=== PATIENT | female | born 1985 | race Caucasian/White ===

== ENCOUNTER 2018-05-10 16:44 | Emergency (ER) | payer OTHER, SELFPAY ==
[2018-05-10 16:48] VITALS: BP 115/80; PULSE 108; RESP 15; TEMP 36.2; O2SAT 100; BMI 28.5
--- NOTE | 2018-05-10 19:00 | DI.RAD.S_ITS ---
PROCEDURE: XR CHEST 1V INDICATIONS: Weakness TECHNIQUE: One view of the chest was acquired. COMPARISON: None. FINDINGS: Surgical changes and devices: Spinal stimulator device projects over the mid thoracic spine. Lungs and pleura: Lungs are clear. No pleural effusions or pneumothorax. Mediastinum: Mediastinal contours appear normal. Heart size is normal. Bones and chest wall: No suspicious bony lesions. Overlying soft tissues appear unremarkable. IMPRESSION: No acute disease. Dictated by: Mark Roberts M.D. on 05/10/2018 at 21:02 Approved by: Mark Roberts M.D. on 05/10/2018 at 21:03
--- NOTE | 2018-05-10 19:03 | PC.NURSE ---
Pt states she has had tingling in all extremities and in her tongue for years. States leaking urine and wanted MRI of her neck.
[2018-05-10 19:22] LABS: Add Manual Diff / Slide Review NO; Basophils Absolute Auto 0 /uL (0-100); Basophils Percent Auto 0.2 % (0-2); Eosinophils Absolute Auto 100 /uL (0-450); Eosinophils Percent Auto 1.1 % (2-4); Hematocrit 40.6 % (36-46); Hemoglobin 13.8 g/dL (12.0-16.0); Lymphocytes Absolute Auto 2500 /uL (1100-4500); Mean Corpuscular Hemoglobin 29.5 PG (26-34); Mean Corpuscular Volume 86.8 fL (80-100); Monocytes Absolute Auto 500 /uL (0-900); Monocytes Percent Auto 7.4 % (3-14); Neutrophils Absolute Auto 3900 /uL (1500-7000); Neutrophils Percent Auto 55.3 % (50-75); Platelet Count 277 X10^3/uL (150-400); Red Blood Cell Count 4.68 X10^6/uL (4.0-5.2); Red Cell Distribution Width 12.6 % (11.6-14.8)
[2018-05-10 19:34] LABS: Alanine Aminotransferase 20 IU/L (9-52); Albumin 4.5 g/dL (3.5-5.0); Albumin Globulin Ratio 1.4 (1.0-2.8); Alkaline Phosphatase 36 U/L (38-126); Aspartate Aminotransferase 14 IU/L (14-36); BUN Creatinine Ratio 12.5 (6-22); Bilirubin Total 0.2 mg/dL (0.2-1.3); Blood Urea Nitrogen 10 mg/dL (7-17); Calcium 9.3 mg/dL (8.4-10.2); Carbon Dioxide 22 mmol/L (22-32); Chloride 106 mmol/L (98-107); Creatine Kinase 27 U/L (30-135); Estimated Glomerular Filt Rate > 60.0 mL/min (>60); Globulin 3.2 g/dL (1.7-4.1); Glucose 88 mg/dL (70-100); HEMOLYSIS < 15 (0-50); Potassium 3.8 mmol/L (3.4-5.1); Sodium 140 mmol/L (137-145); Total Protein 7.7 g/dL (6.3-8.2)
[2018-05-10 19:45] LABS: Troponin I < 0.012 ng/mL (0.01-0.034)
[2018-05-10 20:06] VITALS: BP 110/56; PULSE 80; RESP 12; O2SAT 100
--- NOTE | 2018-05-10 20:43 | ED.EXTPRO ---
HPI - Extremity Problem <WENDI Laboy - Last Filed: 05/10/18 22:40> General Chief complaint: Extremity Problem,Nontraumatic Stated complaint: NUMBNESS IN HANDS AND FEET, SOB Time Seen by Provider: 05/10/18 18:36 Source: patient Mode of arrival: ambulatory Limitations: no limitations History of Present Illness HPI Narrative: 32-year-old female with history of chronic back pain here for complaint of having vague symptoms of generalized weakness with occasional numbness and tingling to bilateral hands and feet over the past 4 months. She states that she sees chronic pain clinic for her back issues. She has had the symptoms for last several months they are wanting to get a CT of her neck which she will complete tomorrow. She denies any trauma to the neck. She is ambulatory into the emergency room. She denies any stressors or relievers of her symptoms. She denies any loss of bladder or bowel control. No trauma to the neck or to the back area. No chest pain no shortness of breath. She is tolerating p.o. intake well. No nausea or vomiting. MD Complaint: other Related Data Home Medications Medication Instructions Recorded Confirmed cholecalciferol (vitamin D3) 3,000 unit PO DAILY 05/10/18 05/10/18 [Vitamin D3] lisinopril 10 mg PO DAILY 05/10/18 05/10/18 magnesium 400 mg PO DAILY 05/10/18 05/10/18 metoprolol tartrate 10 mg PO DAILY 05/10/18 05/10/18 multivitamin 1 tab PO DAILY 05/10/18 05/10/18 nortriptyline 40 mg PO DAILY 05/10/18 05/10/18 oxycodone-acetaminophen [Percocet] 1 tab PO Q4-6H PRN 05/10/18 05/10/18 sumatriptan 5 mg INTRANASAL Q2-4H PRN 05/10/18 05/10/18 topiramate [Topamax] 100 mg PO BID 05/10/18 05/10/18 zolpidem [Ambien] 10 mg PO BEDTIME PRN 05/10/18 05/10/18 Allergies Allergy/AdvReac Type Severity Reaction Status Date / Time iodine [IODINE] Allergy Mild TOPICAL Verified 05/10/18 16:48 ONLY, RASH, ITCHING Penicillins Allergy Verified 05/10/18 16:48 morphine [MORPHINE] AdvReac Severe ITCHING Verified 05/10/18 16:48 Review of Systems <WENDI Laboy - Last Filed: 05/10/18 22:40> Constitutional Denies chills, Denies fever(s), Denies lethargy and Reports weakness Eyes Denies change in vision, Denies eye discharge, Denies irritation and Denies loss of vision ENT Ears, Nose, Mouth, and Throat: Denies change in voice, Denies neck pain and Denies sore throat Cardiovascular Denies chest pain, Denies irregular heart rhythm, Denies lightheadedness, Denies palpitations, Denies dyspnea, Denies dyspnea on exertion and Denies orthopnea Respiratory Denies cough, Denies dyspnea, Denies dyspnea on exertion and Denies wheezing Gastrointestinal Gastrointestinal: Denies abdominal pain, Denies change in bowel habits, Denies diarrhea, Denies nausea and Denies vomiting Genitourinary Denies hematuria, Denies flank pain, Denies urinary incontinence and Denies urinary urgency Musculoskeletal Denies neck pain Comments: . A numbness and tingling to her extremities on off for last 4 months Integumentary/Breasts Denies pruritus, Denies erythema, Denies rash and Denies wounds Neurologic Denies confusion, Denies loss of vision and Reports weakness Psychiatric Denies anxiety, Denies confusion, Denies depression, Denies homicidal ideation and Denies suicidal ideation Endocrine Denies palpitations Hematologic/Lymphatic Denies easy bruising Allergic/Immunologic Denies wheezing PFSH <WENDI Laboy - Last Filed: 05/10/18 22:40> Social History Smoking Status: Unknown if ever smoked Social History Smoking Status: Unknown if ever smoked Exam <WENDI Laboy - Last Filed: 05/10/18 22:40> Initial Vital Signs Initial Vital Signs: Vital Signs Temperature 97.1 F L 05/10/18 16:48 Pulse Rate 108 H 05/10/18 16:48 Respiratory Rate 15 05/10/18 16:48 Blood Pressure 115/80 05/10/18 16:48 Pulse Oximetry 100 05/10/18 16:48 Const General: cooperative and well developed Nutritional Appearance: well nourished Orientation: alert, awake, oriented x3 and not confused [facility] Mouth: oral mucosae normal and moist mucous membranes Eyes Conjunctivae: conjunctivae normal Sclera: sclerae normal Pupils: PERRL EOM: EOM intact bilaterally Resp Effort & Inspection: normal respiratory effort, able to speak in complete sentences, no respiratory distress and no use of accessory muscles Auscultation: clear to auscultation bilaterally, no rales, no rhonchi and no wheezes Cardio Rate: regular rate Rhythm: regular rhythm Heart Sounds: no click, no gallops, no murmurs and no rubs Pulses: normal peripheral pulses GI Inspection: non-distended Palpation: soft, no hepatosplenomegaly, No guarding, No pulsatile mass and No tender Auscultation: normal bowel sounds Skin General: no rashes or lesions noted, No jaundice and No petechiae Neuro General: alert, oriented x3, gait normal and no focal motor deficits Cranial Nerves: CN's II-XI intact bilaterally Cognition: normal cognition Speech: speech normal Motor: muscle tone normal throughout and strength 5/5 throughout Sensory Exam: no sensory deficits noted Extrem General: full ROM, no clubbing, cyanosis or edema, no pedal edema and no calf tenderness <Uzma Cooper MD - Last Filed: 05/11/18 05:33> Initial Vital Signs Initial Vital Signs: Vital Signs Temperature 97.1 F L 05/10/18 16:48 Pulse Rate 108 H 05/10/18 16:48 Respiratory Rate 15 05/10/18 16:48 Blood Pressure 115/80 05/10/18 16:48 Pulse Oximetry 100 05/10/18 16:48 Course <WENDI Laboy - Last Filed: 05/10/18 22:40> Orders Ordered: ED Orders 05/10/18 18:51 EKG-12 Lead Stat 05/10/18 19:00 XR chest 1V Stat 05/10/18 19:13 Complete Blood Count AUTO DIFF Stat Comprehensive Metabolic Panel Stat Thyroid Stimulating Hormone Stat Troponin & CK Cardiac Panel Stat Vital Signs - 8 hr 05/10/18 16:48 05/10/18 20:06 Temperature 97.1 F L Pulse Rate 108 H 80 Respiratory Rate 15 12 Blood Pressure 115/80 Blood Pressure [Left Arm] 110/56 L Pulse Oximetry 100 100 <Uzma Cooper MD - Last Filed: 05/11/18 05:33> Orders Ordered: ED Orders 05/10/18 18:51 EKG-12 Lead Stat 05/10/18 19:00 XR chest 1V Stat 05/10/18 19:13 Complete Blood Count AUTO DIFF Stat Comprehensive Metabolic Panel Stat Thyroid Stimulating Hormone Stat Troponin & CK Cardiac Panel Stat Vital Signs - 8 hr 05/10/18 16:48 05/10/18 20:06 Temperature 97.1 F L Pulse Rate 108 H 80 Respiratory Rate 15 12 Blood Pressure 115/80 Blood Pressure [Left Arm] 110/56 L Pulse Oximetry 100 100 MDM - Extremity (Nontraumatic) <WENDI Laboy - Last Filed: 05/10/18 22:40> Lab Data Result diagrams: 05/10/18 19:13 05/10/18 19:13 Lab Results 05/10/18 05/10/18 05/10/18 Range/Units 19:13 19:13 19:13 WBC 7.0 (4.5-11.0) X10^3/uL RBC 4.68 (4.0-5.2) X10^6/uL Hgb 13.8 (12.0-16.0) g/dL Hct 40.6 (36-46) % MCV 86.8 (80-100) fL MCH 29.5 (26-34) PG MCHC 34.0 (30-36) % RDW 12.6 (11.6-14.8) % Plt Count 277 (150-400) X10^3/uL Neut % (Auto) 55.3 (50-75) % Lymph % (Auto) 36.0 (25-40) % Blair % (Auto) 7.4 (3-14) % Eos % (Auto) 1.1 L (2-4) % Baso % (Auto) 0.2 (0-2) % Neut # (Auto) 3900 (3882-4774) /uL Lymph # (Auto) 2500 (0494-3520) /uL Blair # (Auto) 500 (0-900) /uL Eos # (Auto) 100 (0-450) /uL Baso # (Auto) 0 (0-100) /uL Sodium 140 (137-145) mmol/L Potassium 3.8 (3.4-5.1) mmol/L Chloride 106 (98-107) mmol/L Carbon Dioxide 22 (22-32) mmol/L BUN 10 (7-17) mg/dL Creatinine 0.80 (0.52-1.04) mg/dL Estimated GFR > 60.0 (>60) mL/min BUN/Creatinine Ratio 12.5 (6-22) Glucose 88 (70-100) mg/dL Calcium 9.3 (8.4-10.2) mg/dL Total Bilirubin 0.2 (0.2-1.3) mg/dL AST 14 (14-36) IU/L ALT 20 (9-52) IU/L Alkaline Phosphatase 36 L (38-126) U/L Total Creatine Kinase 27 L (30-135) U/L CK-MB (CK-2) TNP CK-MB (CK-2) Rel Index TNP Troponin I < 0.012 (0.01-0.034) ng/mL Total Protein 7.7 (6.3-8.2) g/dL Albumin 4.5 (3.5-5.0) g/dL Globulin 3.2 (1.7-4.1) g/dL Albumin/Globulin Ratio 1.4 (1.0-2.8) TSH 1.10 (0.47-4.68) uIU/mL Point of Care Testing Test Results Negative Urine Dip Bedside Urine Glucose Negative Bedside Urine Bilirubin - Negative Bedside Urine Ketone - Negative Urine Specific Friendship 1.010 Bedside Urine Occult Blood - Negative Bedside Urine pH 6.5 Bedside Urine Protein - Negative Bedside Urine Urobilinogen - Negative Bedside Urine Nitrite - Negative Bedside Urine Leukocytes - Negative Esterase Imaging Data Chest x-ray: Radiologist's impression: [address] [place] [id number] XRay Report Signed Patient: Amanda Bernstein MMR#: [id number] : 1985Acct:[id number] Age/Sex: FDate of Service: 05/10/18 Loc: ED Accession Number: [id number] Procedure: XR chest 1V Ordering Provider: Shyam Solis PROCEDURE: XR CHEST 1V INDICATIONS: Weakness TECHNIQUE: One view of the chest was acquired. COMPARISON: None. FINDINGS: Surgical changes and devices: Spinal stimulator device projects over the mid thoracic spine. Lungs and pleura: Lungs are clear. No pleural effusions or pneumothorax. Mediastinum: Mediastinal contours appear normal. Heart size is normal. Bones and chest wall: No suspicious bony lesions. Overlying soft tissues appear unremarkable. IMPRESSION: No acute disease. Dictated by: Mark Roberts M.D. on 05/10/2018 at 21:02 Approved by: Mark Roberts M.D. on 05/10/2018 at 21:03 ECG Data Interpretation: EKG shows sinus rhythm with no ST elevation or depression. No ectopy. Ventricular rate of 83. Pr interval 146. QRS duration 90. QTC 388 MDM Narrative Medical decision making narrative: Normal exam with no neurological deficits. Full motor function all throughout. cranial nerves are intact. No sensory deficits are seen. CBC and Chem panel were obtained were unremarkable. Chest x-ray was obtained and was unremarkable. EKG shows sinus rhythm with no ST elevation or depression. No ectopy. Cardiac enzymes were obtained and were negative. Source of her symptoms is not found. Differential between radiculopathy issues to her neck or other degenerative changes follow up with primary care provider. Return emergency room for worsening symptoms. <Uzma Cooper MD - Last Filed: 05/11/18 05:33> Lab Data Lab Results 05/10/18 05/10/18 05/10/18 Range/Units 19:13 19:13 19:13 WBC 7.0 (4.5-11.0) X10^3/uL RBC 4.68 (4.0-5.2) X10^6/uL Hgb 13.8 (12.0-16.0) g/dL Hct 40.6 (36-46) % MCV 86.8 (80-100) fL MCH 29.5 (26-34) PG MCHC 34.0 (30-36) % RDW 12.6 (11.6-14.8) % Plt Count 277 (150-400) X10^3/uL Neut % (Auto) 55.3 (50-75) % Lymph % (Auto) 36.0 (25-40) % Blair % (Auto) 7.4 (3-14) % Eos % (Auto) 1.1 L (2-4) % Baso % (Auto) 0.2 (0-2) % Neut # (Auto) 3900 (4849-3052) /uL Lymph # (Auto) 2500 (8345-8958) /uL Blair # (Auto) 500 (0-900) /uL Eos # (Auto) 100 (0-450) /uL Baso # (Auto) 0 (0-100) /uL Sodium 140 (137-145) mmol/L Potassium 3.8 (3.4-5.1) mmol/L Chloride 106 (98-107) mmol/L Carbon Dioxide 22 (22-32) mmol/L BUN 10 (7-17) mg/dL Creatinine 0.80 (0.52-1.04) mg/dL Estimated GFR > 60.0 (>60) mL/min BUN/Creatinine Ratio 12.5 (6-22) Glucose 88 (70-100) mg/dL Calcium 9.3 (8.4-10.2) mg/dL Total Bilirubin 0.2 (0.2-1.3) mg/dL AST 14 (14-36) IU/L ALT 20 (9-52) IU/L Alkaline Phosphatase 36 L (38-126) U/L Total Creatine Kinase 27 L (30-135) U/L CK-MB (CK-2) TNP CK-MB (CK-2) Rel Index TNP Troponin I < 0.012 (0.01-0.034) ng/mL Total Protein 7.7 (6.3-8.2) g/dL Albumin 4.5 (3.5-5.0) g/dL Globulin 3.2 (1.7-4.1) g/dL Albumin/Globulin Ratio 1.4 (1.0-2.8) TSH 1.10 (0.47-4.68) uIU/mL Point of Care Testing Test Results Negative Urine Dip Bedside Urine Glucose Negative Bedside Urine Bilirubin - Negative Bedside Urine Ketone - Negative Urine Specific Friendship 1.010 Bedside Urine Occult Blood - Negative Bedside Urine pH 6.5 Bedside Urine Protein - Negative Bedside Urine Urobilinogen - Negative Bedside Urine Nitrite - Negative Bedside Urine Leukocytes - Negative Esterase Discharge Plan Departure Patient Disposition: Home Clinical Impression: Hand paresthesia Qualifiers: Laterality: bilateral Qualified Code(s): R20.2 - Paresthesia of skin Discharge Date/Time: 05/10/18 21:26 Interventions: ED Discharge Assessment Last Done: 05/10/18 21:25 Instructions: DI for Numbness/tingling Activity Restrictions/Additional Instructions: Laboratory results and imaging today were unremarkable. Source of numbness and tingling is not found today. Normal exam today. With normal neurological exam. Follow up with her primary care provider for further evaluation. Obtain CT tomorrow as scheduled to rule out degenerative changes to the cervical spine as causes of her symptoms. For any worsening symptoms return to the emergency room. Prescriptions: No Action multivitamin Tablet 1 tab PO DAILY RF: 0 sumatriptan 5 mg/actuation Mulhall,Non-Aerosol 5 mg INTRANASAL Q2-4H PRN (Reason: Migraine Headache) RF: 0 oxycodone-acetaminophen [Percocet] 5-325 mg Tablet 1 tab PO Q4-6H PRN (Reason: Pain (Scale Score 1-3)) RF: 0 nortriptyline 10 mg Capsule 40 mg PO DAILY RF: 0 lisinopril 10 mg Tablet 10 mg PO DAILY RF: 0 zolpidem [Ambien] 10 mg Tablet 10 mg PO BEDTIME PRN (Reason: Insomnia) RF: 0 topiramate [Topamax] 100 mg Tablet 100 mg PO BID RF: 0 cholecalciferol (vitamin D3) [Vitamin D3] 1,000 unit Capsule 3,000 unit PO DAILY RF: 0 magnesium 200 mg Tablet 400 mg PO DAILY RF: 0 metoprolol tartrate 25 mg Tablet 10 mg PO DAILY RF: 0 Referrals: Norma Barakat PA-C [Primary Care Provider] -
--- NOTE | 2018-05-10 20:53 | ED_ITS ---
HPI - Extremity Problem <WENDI Laboy - Last Filed: 05/10/18 22:40> General Chief complaint: Extremity Problem,Nontraumatic Stated complaint: NUMBNESS IN HANDS AND FEET, SOB Time Seen by Provider: 05/10/18 18:36 Source: patient Mode of arrival: ambulatory Limitations: no limitations History of Present Illness HPI Narrative: 32-year-old female with history of chronic back pain here for complaint of having vague symptoms of generalized weakness with occasional numbness and tingling to bilateral hands and feet over the past 4 months. She states that she sees chronic pain clinic for her back issues. She has had the symptoms for last several months they are wanting to get a CT of her neck which she will complete tomorrow. She denies any trauma to the neck. She is ambulatory into the emergency room. She denies any stressors or relievers of her symptoms. She denies any loss of bladder or bowel control. No trauma to the neck or to the back area. No chest pain no shortness of breath. She is tolerating p.o. intake well. No nausea or vomiting. MD Complaint: other Related Data Home Medications Medication Instructions Recorded Confirmed cholecalciferol (vitamin D3) 3,000 unit PO DAILY 05/10/18 05/10/18 [Vitamin D3] lisinopril 10 mg PO DAILY 05/10/18 05/10/18 magnesium 400 mg PO DAILY 05/10/18 05/10/18 metoprolol tartrate 10 mg PO DAILY 05/10/18 05/10/18 multivitamin 1 tab PO DAILY 05/10/18 05/10/18 nortriptyline 40 mg PO DAILY 05/10/18 05/10/18 oxycodone-acetaminophen [Percocet] 1 tab PO Q4-6H PRN 05/10/18 05/10/18 sumatriptan 5 mg INTRANASAL Q2-4H PRN 05/10/18 05/10/18 topiramate [Topamax] 100 mg PO BID 05/10/18 05/10/18 zolpidem [Ambien] 10 mg PO BEDTIME PRN 05/10/18 05/10/18 Allergies Allergy/AdvReac Type Severity Reaction Status Date / Time iodine [IODINE] Allergy Mild TOPICAL Verified 05/10/18 16:48 ONLY, RASH, ITCHING Penicillins Allergy Verified 05/10/18 16:48 morphine [MORPHINE] AdvReac Severe ITCHING Verified 05/10/18 16:48 Review of Systems <WENDI Laboy - Last Filed: 05/10/18 22:40> Constitutional Denies chills, Denies fever(s), Denies lethargy and Reports weakness Eyes Denies change in vision, Denies eye discharge, Denies irritation and Denies loss of vision ENT Ears, Nose, Mouth, and Throat: Denies change in voice, Denies neck pain and Denies sore throat Cardiovascular Denies chest pain, Denies irregular heart rhythm, Denies lightheadedness, Denies palpitations, Denies dyspnea, Denies dyspnea on exertion and Denies orthopnea Respiratory Denies cough, Denies dyspnea, Denies dyspnea on exertion and Denies wheezing Gastrointestinal Gastrointestinal: Denies abdominal pain, Denies change in bowel habits, Denies diarrhea, Denies nausea and Denies vomiting Genitourinary Denies hematuria, Denies flank pain, Denies urinary incontinence and Denies urinary urgency Musculoskeletal Denies neck pain Comments: . A numbness and tingling to her extremities on off for last 4 months Integumentary/Breasts Denies pruritus, Denies erythema, Denies rash and Denies wounds Neurologic Denies confusion, Denies loss of vision and Reports weakness Psychiatric Denies anxiety, Denies confusion, Denies depression, Denies homicidal ideation and Denies suicidal ideation Endocrine Denies palpitations Hematologic/Lymphatic Denies easy bruising Allergic/Immunologic Denies wheezing PFSH <WENDI Laboy - Last Filed: 05/10/18 22:40> Social History Smoking Status: Unknown if ever smoked Social History Smoking Status: Unknown if ever smoked Exam <WENDI Laboy - Last Filed: 05/10/18 22:40> Initial Vital Signs Initial Vital Signs: Vital Signs Temperature 97.1 F L 05/10/18 16:48 Pulse Rate 108 H 05/10/18 16:48 Respiratory Rate 15 05/10/18 16:48 Blood Pressure 115/80 05/10/18 16:48 Pulse Oximetry 100 05/10/18 16:48 Const General: cooperative and well developed Nutritional Appearance: well nourished Orientation: alert, awake, oriented x3 and not confused [facility] Mouth: oral mucosae normal and moist mucous membranes Eyes Conjunctivae: conjunctivae normal Sclera: sclerae normal Pupils: PERRL EOM: EOM intact bilaterally Resp Effort & Inspection: normal respiratory effort, able to speak in complete sentences, no respiratory distress and no use of accessory muscles Auscultation: clear to auscultation bilaterally, no rales, no rhonchi and no wheezes Cardio Rate: regular rate Rhythm: regular rhythm Heart Sounds: no click, no gallops, no murmurs and no rubs Pulses: normal peripheral pulses GI Inspection: non-distended Palpation: soft, no hepatosplenomegaly, No guarding, No pulsatile mass and No tender Auscultation: normal bowel sounds Skin General: no rashes or lesions noted, No jaundice and No petechiae Neuro General: alert, oriented x3, gait normal and no focal motor deficits Cranial Nerves: CN's II-XI intact bilaterally Cognition: normal cognition Speech: speech normal Motor: muscle tone normal throughout and strength 5/5 throughout Sensory Exam: no sensory deficits noted Extrem General: full ROM, no clubbing, cyanosis or edema, no pedal edema and no calf tenderness <Uzma Cooper MD - Last Filed: 05/11/18 05:33> Initial Vital Signs Initial Vital Signs: Vital Signs Temperature 97.1 F L 05/10/18 16:48 Pulse Rate 108 H 05/10/18 16:48 Respiratory Rate 15 05/10/18 16:48 Blood Pressure 115/80 05/10/18 16:48 Pulse Oximetry 100 05/10/18 16:48 Course <WENDI Laboy - Last Filed: 05/10/18 22:40> Orders Ordered: ED Orders 05/10/18 18:51 EKG-12 Lead Stat 05/10/18 19:00 XR chest 1V Stat 05/10/18 19:13 Complete Blood Count AUTO DIFF Stat Comprehensive Metabolic Panel Stat Thyroid Stimulating Hormone Stat Troponin & CK Cardiac Panel Stat Vital Signs - 8 hr 05/10/18 16:48 05/10/18 20:06 Temperature 97.1 F L Pulse Rate 108 H 80 Respiratory Rate 15 12 Blood Pressure 115/80 Blood Pressure [Left Arm] 110/56 L Pulse Oximetry 100 100 <Uzma Cooper MD - Last Filed: 05/11/18 05:33> Orders Ordered: ED Orders 05/10/18 18:51 EKG-12 Lead Stat 05/10/18 19:00 XR chest 1V Stat 05/10/18 19:13 Complete Blood Count AUTO DIFF Stat Comprehensive Metabolic Panel Stat Thyroid Stimulating Hormone Stat Troponin & CK Cardiac Panel Stat Vital Signs - 8 hr 05/10/18 16:48 05/10/18 20:06 Temperature 97.1 F L Pulse Rate 108 H 80 Respiratory Rate 15 12 Blood Pressure 115/80 Blood Pressure [Left Arm] 110/56 L Pulse Oximetry 100 100 MDM - Extremity (Nontraumatic) <WENDI Laboy - Last Filed: 05/10/18 22:40> Lab Data Result diagrams: 05/10/18 19:13 05/10/18 19:13 Lab Results 05/10/18 05/10/18 05/10/18 Range/Units 19:13 19:13 19:13 WBC 7.0 (4.5-11.0) X10^3/uL RBC 4.68 (4.0-5.2) X10^6/uL Hgb 13.8 (12.0-16.0) g/dL Hct 40.6 (36-46) % MCV 86.8 (80-100) fL MCH 29.5 (26-34) PG MCHC 34.0 (30-36) % RDW 12.6 (11.6-14.8) % Plt Count 277 (150-400) X10^3/uL Neut % (Auto) 55.3 (50-75) % Lymph % (Auto) 36.0 (25-40) % Luce % (Auto) 7.4 (3-14) % Eos % (Auto) 1.1 L (2-4) % Baso % (Auto) 0.2 (0-2) % Neut # (Auto) 3900 (7112-2429) /uL Lymph # (Auto) 2500 (5115-2709) /uL Luce # (Auto) 500 (0-900) /uL Eos # (Auto) 100 (0-450) /uL Baso # (Auto) 0 (0-100) /uL Sodium 140 (137-145) mmol/L Potassium 3.8 (3.4-5.1) mmol/L Chloride 106 (98-107) mmol/L Carbon Dioxide 22 (22-32) mmol/L BUN 10 (7-17) mg/dL Creatinine 0.80 (0.52-1.04) mg/dL Estimated GFR > 60.0 (>60) mL/min BUN/Creatinine Ratio 12.5 (6-22) Glucose 88 (70-100) mg/dL Calcium 9.3 (8.4-10.2) mg/dL Total Bilirubin 0.2 (0.2-1.3) mg/dL AST 14 (14-36) IU/L ALT 20 (9-52) IU/L Alkaline Phosphatase 36 L (38-126) U/L Total Creatine Kinase 27 L (30-135) U/L CK-MB (CK-2) TNP CK-MB (CK-2) Rel Index TNP Troponin I < 0.012 (0.01-0.034) ng/mL Total Protein 7.7 (6.3-8.2) g/dL Albumin 4.5 (3.5-5.0) g/dL Globulin 3.2 (1.7-4.1) g/dL Albumin/Globulin Ratio 1.4 (1.0-2.8) TSH 1.10 (0.47-4.68) uIU/mL Point of Care Testing Test Results Negative Urine Dip Bedside Urine Glucose Negative Bedside Urine Bilirubin - Negative Bedside Urine Ketone - Negative Urine Specific [place] 1.010 Bedside Urine Occult Blood - Negative Bedside Urine pH 6.5 Bedside Urine Protein - Negative Bedside Urine Urobilinogen - Negative Bedside Urine Nitrite - Negative Bedside Urine Leukocytes - Negative Esterase Imaging Data Chest x-ray: Radiologist's impression: [address] [place] [id number] XRay Report Signed Patient: Amanda Bernstein MMR#: [id number] : 1985Acct:[id number] Age/Sex: FDate of Service: 05/10/18 Loc: ED Accession Number: [id number] Procedure: XR chest 1V Ordering Provider: Shyam Solis PROCEDURE: XR CHEST 1V INDICATIONS: Weakness TECHNIQUE: One view of the chest was acquired. COMPARISON: None. FINDINGS: Surgical changes and devices: Spinal stimulator device projects over the mid thoracic spine. Lungs and pleura: Lungs are clear. No pleural effusions or pneumothorax. Mediastinum: Mediastinal contours appear normal. Heart size is normal. Bones and chest wall: No suspicious bony lesions. Overlying soft tissues appear unremarkable. IMPRESSION: No acute disease. Dictated by: Mark Roberts M.D. on 05/10/2018 at 21:02 Approved by: Mark Roberts M.D. on 05/10/2018 at 21:03 ECG Data Interpretation: EKG shows sinus rhythm with no ST elevation or depression. No ectopy. Ventricular rate of 83. Pr interval 146. QRS duration 90. QTC 388 MDM Narrative Medical decision making narrative: Normal exam with no neurological deficits. Full motor function all throughout. cranial nerves are intact. No sensory d eficits are seen. CBC and Chem panel were obtained were unremarkable. Chest x- ray was obtained and was unremarkable. EKG shows sinus rhythm with no ST elevation or depression. No ectopy. Cardiac enzymes were obtained and were negative. Source of her symptoms is not found. Differential between radiculopathy issues to her neck or other degenerative changes follow up with primary care provider. Return emergency room for worsening symptoms. <Uzma Cooper MD - Last Filed: 05/11/18 05:33> Lab Data Lab Results 05/10/18 05/10/18 05/10/18 Range/Units 19:13 19:13 19:13 WBC 7.0 (4.5-11.0) X10^3/uL RBC 4.68 (4.0-5.2) X10^6/uL Hgb 13.8 (12.0-16.0) g/dL Hct 40.6 (36-46) % MCV 86.8 (80-100) fL MCH 29.5 (26-34) PG MCHC 34.0 (30-36) % RDW 12.6 (11.6-14.8) % Plt Count 277 (150-400) X10^3/uL Neut % (Auto) 55.3 (50-75) % Lymph % (Auto) 36.0 (25-40) % Luce % (Auto) 7.4 (3-14) % Eos % (Auto) 1.1 L (2-4) % Baso % (Auto) 0.2 (0-2) % Neut # (Auto) 3900 (2441-9540) /uL Lymph # (Auto) 2500 (7374-8504) /uL Luce # (Auto) 500 (0-900) /uL Eos # (Auto) 100 (0-450) /uL Baso # (Auto) 0 (0-100) /uL Sodium 140 (137-145) mmol/L Potassium 3.8 (3.4-5.1) mmol/L Chloride 106 (98-107) mmol/L Carbon Dioxide 22 (22-32) mmol/L BUN 10 (7-17) mg/dL Creatinine 0.80 (0.52-1.04) mg/dL Estimated GFR > 60.0 (>60) mL/min BUN/Creatinine Ratio 12.5 (6-22) Glucose 88 (70-100) mg/dL Calcium 9.3 (8.4-10.2) mg/dL Total Bilirubin 0.2 (0.2-1.3) mg/dL AST 14 (14-36) IU/L ALT 20 (9-52) IU/L Alkaline Phosphatase 36 L (38-126) U/L Total Creatine Kinase 27 L (30-135) U/L CK-MB (CK-2) TNP CK-MB (CK-2) Rel Index TNP Troponin I < 0.012 (0.01-0.034) ng/mL Total Protein 7.7 (6.3-8.2) g/dL Albumin 4.5 (3.5-5.0) g/dL Globulin 3.2 (1.7-4.1) g/dL Albumin/Globulin Ratio 1.4 (1.0-2.8) TSH 1.10 (0.47-4.68) uIU/mL Point of Care Testing Test Results Negative Urine Dip Bedside Urine Glucose Negative Bedside Urine Bilirubin - Negative Bedside Urine Ketone - Negative Urine Specific [place] 1.010 Bedside Urine Occult Blood - Negative Bedside Urine pH 6.5 Bedside Urine Protein - Negative Bedside Urine Urobilinogen - Negative Bedside Urine Nitrite - Negative Bedside Urine Leukocytes - Negative Esterase Discharge Plan Departure Patient Disposition: Home Clinical Impression: Hand paresthesia Qualifiers: Laterality: bilateral Qualified Code(s): R20.2 - Paresthesia of skin Discharge Date/Time: 05/10/18 21:26 Interventions: ED Discharge Assessment Last Done: 05/10/18 21:25 Instructions: DI for Numbness/tingling Activity Restrictions/Additional Instructions: Laboratory results and imaging today were unremarkable. Source of numbness and tingling is not found today. Normal exam today. With normal neurological exam. Follow up with her primary care provider for further evaluation. Obtain CT tomorrow as scheduled to rule out degenerative changes to the cervical spine as causes of her symptoms. For any worsening symptoms return to the emergency room. Prescriptions: No Action multivitamin Tablet 1 tab PO DAILY RF: 0 sumatriptan 5 mg/actuation [place],Non-Aerosol 5 mg INTRANASAL Q2-4H PRN (Reason: Migraine Headache) RF: 0 oxycodone-acetaminophen [Percocet] 5-325 mg Tablet 1 tab PO Q4-6H PRN (Reason: Pain (Scale Score 1-3)) RF: 0 nortriptyline 10 mg Capsule 40 mg PO DAILY RF: 0 lisinopril 10 mg Tablet 10 mg PO DAILY RF: 0 zolpidem [Ambien] 10 mg Tablet 10 mg PO BEDTIME PRN (Reason: Insomnia) RF: 0 topiramate [Topamax] 100 mg Tablet 100 mg PO BID RF: 0 cholecalciferol (vitamin D3) [Vitamin D3] 1,000 unit Capsule 3,000 unit PO DAILY RF: 0 magnesium 200 mg Tablet 400 mg PO DAILY RF: 0 metoprolol tartrate 25 mg Tablet 10 mg PO DAILY RF: 0 Referrals: Norma Barakat PA-C [Primary Care Provider] -
== END 2018-05-10 21:26 | disposition home or self-care (01) ==
PROVIDERS: Emergency Provider Nurse Practitioner Family; Family Provider Physician Assistant; PCP Physician Assistant
DX: R20.2 Paresthesia of skin (principal); R53.1 Weakness
CPT/HCPCS: 71045; 80053; 81003; 81025; 82550; 84443; 84484; 85025; 93005; 99283; 99285

== ENCOUNTER 2018-09-30 12:53 | Emergency (ER) | payer OTHER, SELFPAY ==
[2018-09-30 13:00] VITALS: BP 144/86; PULSE 89; RESP 12; TEMP 36.5; O2SAT 100; BMI 26.6
--- NOTE | 2018-09-30 13:02 | DI.RAD.S_ITS ---
PROCEDURE: XR CHEST 1V INDICATIONS: chest pain TECHNIQUE: One view of the chest was acquired. COMPARISON: [facility], CR, XR CHEST 1V, 05/10/2018, 19:18. FINDINGS: Surgical changes and devices: There appears to be a spinal stimulator apparatus overlying the mid thoracic region. Lungs and pleura: Lungs are clear. No pleural effusions or pneumothorax. Mediastinum: Mediastinal contours appear normal. Heart size is normal. Bones and chest wall: No suspicious bony lesions. Overlying soft tissues appear unremarkable. IMPRESSION: No acute cardiopulmonary process is evident. The Dictated by: Rasheed Etienne M.D. on 09/30/2018 at 12:29 Approved by: Rasheed Etienne M.D. on 09/30/2018 at 12:32
--- NOTE | 2018-09-30 13:04 | ED.CHESTPAIN ---
HPI - Chest Pain General Chief Complaint: Chest Pain Stated Complaint: chest pain/shoulder blades since this am Time Seen by Provider: 09/30/18 12:56 Source: patient and family Mode of arrival: ambulatory Limitations: no limitations History of Present Illness HPI narrative: 33-year-old female nonsmoker being worked up for lupus presents with a chief complaint of sharp and stabbing anterior chest pain with radiation to her back which started at about 8:00 a.m. this morning. She denies any cough or shortness of breath. She denies any nausea, vomiting or diaphoresis. She denies any recent travel, history of clot or cancer. She states it is worse with deep breath or palpation and improves when leaning forward. MD complaint: chest pain Onset (ago): hour(s) Duration: constant Pain location: substernal Severity: moderate Quality: sharp Pain radiation: back Relieving factors: leaning forward Exacerbating factors: inspiration, palpation and movement Treatments prior to arrival chest pain: none Related Data On Oral Contraceptives: No Home Medications Medication Instructions Recorded Confirmed cholecalciferol (vitamin D3) 3,000 unit PO DAILY 05/10/18 09/30/18 [Vitamin D3] magnesium 400 mg PO DAILY 05/10/18 09/30/18 metoprolol tartrate 10 mg PO DAILY 05/10/18 09/30/18 multivitamin 1 tab PO DAILY 05/10/18 09/30/18 nortriptyline 40 mg PO DAILY 05/10/18 09/30/18 oxycodone-acetaminophen [Percocet] 1 tab PO Q4-6H PRN 05/10/18 09/30/18 sumatriptan 5 mg INTRANASAL Q2-4H PRN 05/10/18 09/30/18 topiramate [Topamax] 100 mg PO BID 05/10/18 09/30/18 zolpidem [Ambien] 10 mg PO BEDTIME PRN 05/10/18 09/30/18 hydroxychloroquine [Plaquenil] 400 mg PO DAILY 09/30/18 09/30/18 norgestimate-ethinyl estradiol 1 tab PO DAILY 09/30/18 09/30/18 [Ortho Tri-Cyclen (28)] sertraline 50 mg PO DAILY 09/30/18 09/30/18 Allergies Allergy/AdvReac Type Severity Reaction Status Date / Time iodine [IODINE] Allergy Mild TOPICAL Verified 05/10/18 16:48 ONLY, RASH, ITCHING Penicillins Allergy Verified 05/10/18 16:48 morphine [MORPHINE] AdvReac Severe ITCHING Verified 05/10/18 16:48 Review of Systems Constitutional Denies chills, Denies fever(s), Denies lethargy and Denies weakness Eyes Denies change in vision, Denies eye discharge, Denies irritation and Denies loss of vision ENT Ears, Nose, Mouth, and Throat: Denies change in voice, Denies neck pain and Denies sore throat Cardiovascular Reports chest pain, Denies irregular heart rhythm, Denies lightheadedness, Denies palpitations, Denies dyspnea, Denies dyspnea on exertion and Denies orthopnea Respiratory Denies cough, Denies dyspnea, Denies dyspnea on exertion and Denies wheezing Gastrointestinal Gastrointestinal: Denies abdominal pain, Denies change in bowel habits, Denies diarrhea, Denies nausea and Denies vomiting Genitourinary Denies hematuria, Denies flank pain, Denies urinary incontinence and Denies urinary urgency Musculoskeletal Denies neck pain Integumentary/Breasts Denies pruritus, Denies erythema, Denies rash and Denies wounds Neurologic Denies confusion, Denies loss of vision and Denies weakness Psychiatric Denies anxiety, Denies confusion, Denies depression, Denies homicidal ideation and Denies suicidal ideation Endocrine Denies palpitations Hematologic/Lymphatic Denies easy bruising Allergic/Immunologic Denies wheezing PFSH Social History Smoking Status: Unknown if ever smoked Social History Smoking Status: Never smoker Exam Narrative Exam Narrative: GENERAL: [33] year old patient appears stated age. Well-nourished, well-developed patient, in mild distress. HEAD: Atraumatic. Normocephalic. EYES: Pupils equal round and reactive. Extraocular motions intact. No scleral icterus. No injection or drainage. ENT: Nose without bleeding, purulent drainage. Throat without erythema, tonsillar hypertrophy or exudate. Airway patent. NECK: Trachea midline. Non tender CARDIOVASCULAR: Regular rate and rhythm without murmurs, gallops, or rubs. RESPIRATORY: Clear to auscultation. Breath sounds equal bilaterally. No wheezes, rales, or rhonchi. GASTROINTESTINAL: Abdomen soft, non-tender, nondistended. EXTREMITIES: No edema or joint tenderness. BACK: Nontender without deformity or crepitance. No flank tenderness. NEURO: AOx3. SKIN: No rash or erythema of visible areas Initial Vital Signs Initial Vital Signs: Vital Signs Temperature 97.7 F 09/30/18 13:00 Pulse Rate 89 09/30/18 13:00 Respiratory Rate 12 09/30/18 13:00 Blood Pressure 144/86 H 09/30/18 13:00 Pulse Oximetry 100 09/30/18 13:00 Scores PERC Score Age greater than or equal to 50 years: No Heart rate greater than or equal to 100 bpm: No Room Air O2 Sat less than 95%: No Unilateral leg swelling: No Recent trauma or surgery: No Hemoptysis: No Prior PE or DVT: No Hormone Use: Yes Total PERC Score: 1 Wells' Criteria for PE Clinical signs and symptoms of DVT: No PE is #1 Dx or equally likely: No Heart rate > 100: No Immobilization at least 3 days or surg in previous 4 weeks: No History of PE or DVT: No Hemoptysis: No Malignancy w/Treatment within 6 months or palliative: No Wells' PE Score total: 0 Course Orders Ordered: ED Orders 09/30/18 13:02 XR chest 1V Stat EKG-12 Lead Stat 09/30/18 13:13 Complete Blood Count AUTO DIFF Stat Comprehensive Metabolic Panel Stat D Dimer Stat Lipase Stat Troponin & CK Cardiac Panel Stat Discontinued Medications Sodium Chloride (Normal Saline 0.9%) 1,000 mls @ 150 mls/hr IV CONT LETICIA Last Infusion: 09/30/18 15:05 Dose: 0 mls/hr Admin: 09/30/18 13:30 Dose: 150 mls/hr Ketorolac Tromethamine (Toradol) 15 mg IV NOW ONE Stop: 09/30/18 13:03 Last Admin: 09/30/18 13:30 Dose: 15 mg Vital Signs - 8 hr 09/30/18 13:00 09/30/18 13:30 09/30/18 14:00 Temperature 97.7 F Pulse Rate 89 75 74 Respiratory Rate 12 17 15 Blood Pressure 144/86 H Blood Pressure [Left Arm] 128/74 127/76 Pulse Oximetry 100 100 100 09/30/18 14:30 09/30/18 15:04 Temperature Pulse Rate 84 72 Respiratory Rate 14 19 Blood Pressure Blood Pressure [Left Arm] 122/76 108/64 Pulse Oximetry 100 100 MDM - Chest Pain Lab Data Result diagrams: 09/30/18 13:13 09/30/18 13:13 Lab Results 09/30/18 09/30/18 09/30/18 Range/Units 13:13 13:13 13:13 WBC 11.6 H (4.5-11.0) X10^3/uL RBC 4.92 (4.0-5.2) X10^6/uL Hgb 14.3 (12.0-16.0) g/dL Hct 43.1 (36-46) % MCV 87.7 (80-100) fL MCH 29.1 (26-34) PG MCHC 33.2 (30-36) % RDW 12.9 (11.6-14.8) % Plt Count 331 (150-400) X10^3/uL Neut % (Auto) 76.4 H (50-75) % Lymph % (Auto) 17.2 L (25-40) % [place] % (Auto) 5.5 (3-14) % Eos % (Auto) 0.8 L (2-4) % Baso % (Auto) 0.1 (0-2) % Neut # (Auto) 8800 H (1402-2790) /uL Lymph # (Auto) 2000 (2216-2649) /uL [place] # (Auto) 600 (0-900) /uL Eos # (Auto) 100 (0-450) /uL Baso # (Auto) 0 (0-100) /uL D-Dimer 319 H (<230) ng/mL Sodium 139 (137-145) mmol/L Potassium 4.0 (3.4-5.1) mmol/L Chloride 107 (98-107) mmol/L Carbon Dioxide 22 (22-32) mmol/L BUN 11 (7-17) mg/dL Creatinine 0.80 (0.52-1.04) mg/dL Estimated GFR > 60.0 (>60) mL/min BUN/Creatinine Ratio 13.8 (6-22) Glucose 82 (70-100) mg/dL Calcium 9.6 (8.4-10.2) mg/dL Total Bilirubin 0.6 (0.2-1.3) mg/dL AST 22 (14-36) IU/L ALT 18 (9-52) IU/L Alkaline Phosphatase 36 L (38-126) U/L Total Creatine Kinase 49 (30-135) U/L CK-MB (CK-2) TNP CK-MB (CK-2) Rel Index TNP Troponin I < 0.012 (0.01-0.034) ng/mL Total Protein 7.8 (6.3-8.2) g/dL Albumin 4.6 (3.5-5.0) g/dL Globulin 3.2 (1.7-4.1) g/dL Albumin/Globulin Ratio 1.4 (1.0-2.8) Lipase 67 (23-300) U/L MDM Narrative Medical decision making narrative: Multiple etiologies for patient's symptoms considered including: [Cardiac ischemia versus pulmonary embolism versus biliary trouble versus other] Patient's symptoms improved or duration of stay with above-stated therapies. Findings and discharge diagnosis discussed with patient/family followed by verbalization of understanding Return precautions discussed with patient/family whom verbalize understanding. Discharge Plan Departure Patient Disposition: Home Clinical Impression: Atypical chest pain Discharge Date/Time: 09/30/18 15:13 Interventions: ED Discharge Assessment Last Done: 09/30/18 15:11 Instructions: DI for Atypical Chest Pain Activity Restrictions/Additional Instructions: *You have been diagnosed with [atypical chest pain] *What to do: * continue to take medications as directed *Follow up with your primary care provider in 2-3 days, call for an appointment. Let them know you were seen in the Emergency Department and that we ask that you be seen in follow up *Return to ER if you should have any new, worsening or concerning symptoms Prescriptions: No Action multivitamin Tablet 1 tab PO DAILY RF: 0 sumatriptan 5 mg/actuation [place],Non-Aerosol 5 mg INTRANASAL Q2-4H PRN (Reason: Migraine Headache) RF: 0 oxycodone-acetaminophen [Percocet] 5-325 mg Tablet 1 tab PO Q4-6H PRN (Reason: Pain (Scale Score 1-3)) RF: 0 nortriptyline 10 mg Capsule 40 mg PO DAILY RF: 0 zolpidem [Ambien] 10 mg Tablet 10 mg PO BEDTIME PRN (Reason: Insomnia) RF: 0 topiramate [Topamax] 100 mg Tablet 100 mg PO BID RF: 0 cholecalciferol (vitamin D3) [Vitamin D3] 1,000 unit Capsule 3,000 unit PO DAILY RF: 0 magnesium 200 mg Tablet 400 mg PO DAILY RF: 0 metoprolol tartrate 25 mg Tablet 10 mg PO DAILY RF: 0 hydroxychloroquine [Plaquenil] 200 mg Tablet 400 mg PO DAILY RF: 0 sertraline 50 mg Tablet 50 mg PO DAILY RF: 0 norgestimate-ethinyl estradiol [Ortho Tri-Cyclen (28)] 0.18/0.215/0.25 mg-35 mcg (28) Tablet 1 tab PO DAILY RF: 0 Referrals: Gertrude Pina DO [Primary Care Provider] -
[2018-09-30 13:25] LABS: Add Manual Diff / Slide Review NO; Basophils Absolute Auto 0 /uL (0-100); Basophils Percent Auto 0.1 % (0-2); Eosinophils Absolute Auto 100 /uL (0-450); Eosinophils Percent Auto 0.8 % (2-4); Hematocrit 43.1 % (36-46); Hemoglobin 14.3 g/dL (12.0-16.0); Lymphocytes Absolute Auto 2000 /uL (1100-4500); Lymphocytes Percent Auto 17.2 % (25-40); Mean Corpuscular HGB Conc 33.2 % (30-36); Mean Corpuscular Hemoglobin 29.1 PG (26-34); Mean Corpuscular Volume 87.7 fL (80-100); Monocytes Absolute Auto 600 /uL (0-900); Monocytes Percent Auto 5.5 % (3-14); Neutrophils Absolute Auto 8800 /uL (1500-7000); Neutrophils Percent Auto 76.4 % (50-75); Platelet Count 331 X10^3/uL (150-400); Red Blood Cell Count 4.92 X10^6/uL (4.0-5.2); Red Cell Distribution Width 12.9 % (11.6-14.8); White Blood Cell Count 11.6 X10^3/uL (4.5-11.0)
[2018-09-30 13:30] VITALS: BP 128/74; PULSE 75; RESP 17; O2SAT 100
[2018-09-30] MEDS: KETOROLAC 60 MG/2 ML VIAL 15 MG IV (13:30)
[2018-09-30] MEDS: SODIUM CHLORIDE 0.9% 1,000 ML 150 ML IV (13:30)
[2018-09-30 13:39] LABS: Alanine Aminotransferase 18 IU/L (9-52); Albumin 4.6 g/dL (3.5-5.0); Albumin Globulin Ratio 1.4 (1.0-2.8); Alkaline Phosphatase 36 U/L (38-126); Aspartate Aminotransferase 22 IU/L (14-36); BUN Creatinine Ratio 13.8 (6-22); Bilirubin Total 0.6 mg/dL (0.2-1.3); Blood Urea Nitrogen 11 mg/dL (7-17); Calcium 9.6 mg/dL (8.4-10.2); Carbon Dioxide 22 mmol/L (22-32); Chloride 107 mmol/L (98-107); Creatine Kinase 49 U/L (30-135); Estimated Glomerular Filt Rate > 60.0 mL/min (>60); Globulin 3.2 g/dL (1.7-4.1); Glucose 82 mg/dL (70-100); HEMOLYSIS 23 (0-50); Lipase 67 U/L (23-300); Sodium 139 mmol/L (137-145); Total Protein 7.8 g/dL (6.3-8.2)
[2018-09-30 13:50] LABS: Troponin I < 0.012 ng/mL (0.01-0.034)
[2018-09-30 14:00] VITALS: BP 127/76; PULSE 74; RESP 15; O2SAT 100
[2018-09-30 14:29] LABS: D Dimer 319 ng/mL (<230)
[2018-09-30 14:30] VITALS: BP 122/76; PULSE 84; RESP 14; O2SAT 100
[2018-09-30 15:04] VITALS: BP 108/64; BP 117/70; PULSE 72; PULSE 80; RESP 14; RESP 19; O2SAT 100
== END 2018-09-30 15:13 | disposition home or self-care (01) ==
PROVIDERS: Emergency Provider Emergency Medicine; PCP Family Medicine
DX: R07.89 Other chest pain (principal)
CPT/HCPCS: 36591; 71045; 80053; 82550; 83690; 84484; 85025; 85379; 93005; 93010; 96361; 96374; 99283; 99285; J1885

== ENCOUNTER 2018-12-24 08:50 | Emergency (ER) | payer OTHER, SELFPAY ==
[2018-12-24 08:55] VITALS: BP 129/87; PULSE 90; RESP 13; TEMP 36.1; O2SAT 99
[2018-12-24 10:01] LABS: Alanine Aminotransferase 14 IU/L (<35)
--- NOTE | 2018-12-24 10:52 | ED_ITS ---
HPI - Skin/Abscess/Foreign Bdy General Chief complaint: Skin/Abscess/Foreign Body Stated complaint: needle poke (student from [employer]) Time Seen by Provider: 12/24/18 09:21 Source: patient Mode of arrival: Ambulatory Limitations: no limitations History of Present Illness HPI narrative: Patient comes emergency department complaining of a finger stick exposure from a patient with some kind of hepatitis-C history. Patient states that the needle appear to be small bore, and she did not notice any blood on it. She states that the stick happened when she was cleaning debris off the counter top. Patient states that she herself did not drop the patient's blood or use the needle on the patient in any other way. Related Data Home Medications Medication Instructions Recorded Confirmed cholecalciferol (vitamin D3) 3,000 unit PO DAILY 05/10/18 09/30/18 [Vitamin D3] magnesium 400 mg PO DAILY 05/10/18 09/30/18 metoprolol tartrate 10 mg PO DAILY 05/10/18 09/30/18 multivitamin 1 tab PO DAILY 05/10/18 09/30/18 nortriptyline 40 mg PO DAILY 05/10/18 09/30/18 oxycodone-acetaminophen [Percocet] 1 tab PO Q4-6H PRN 05/10/18 09/30/18 sumatriptan 5 mg INTRANASAL Q2-4H PRN 05/10/18 09/30/18 topiramate [Topamax] 100 mg PO BID 05/10/18 09/30/18 zolpidem [Ambien] 10 mg PO BEDTIME PRN 05/10/18 09/30/18 hydroxychloroquine [Plaquenil] 400 mg PO DAILY 09/30/18 09/30/18 norgestimate-ethinyl estradiol 1 tab PO DAILY 09/30/18 09/30/18 [Ortho Tri-Cyclen (28)] sertraline 50 mg PO DAILY 09/30/18 09/30/18 Allergies Allergy/AdvReac Type Severity Reaction Status Date / Time iodine [IODINE] Allergy Mild TOPICAL Verified 05/10/18 16:48 ONLY, RASH, ITCHING Penicillins Allergy Verified 05/10/18 16:48 morphine [MORPHINE] AdvReac Severe ITCHING Verified 05/10/18 16:48 Review of Systems Review of Systems ROS Unobtainable: All systems reviewed & are unremarkable except as noted in HPI and below Constitutional Constitutional: Denies chills, Denies fatigue, Denies fever(s), Denies frequent falls, Denies lethargy and Denies weakness Eyes Eyes: Denies change in vision, Denies eye discharge, Denies irritation and Denies loss of vision ENT Ears, Nose, Mouth, and Throat: Denies change in voice, Denies dizziness, Denies neck pain, Denies sore throat and Denies throat swelling Cardiovascular Cardiovascular: Denies chest pain, Denies irregular heart rhythm, Denies li ghtheadedness, Denies palpitations, Denies dyspnea, Denies dyspnea on exertion and Denies orthopnea Respiratory Respiratory: Denies cough, Denies dyspnea, Denies dyspnea on exertion and Denies wheezing Gastrointestinal Gastrointestinal: Denies abdominal pain, Denies change in bowel habits, Denies diarrhea, Denies nausea and Denies vomiting Genitourinary Genitourinary: Denies hematuria, Denies flank pain, Denies urinary incontinence and Denies urinary urgency Musculoskeletal Musculoskeletal: Denies back pain, Denies muscle weakness, Denies neck pain, Denies numbness and Denies tingling Integumentary/Breasts Skin/Breast: Denies pruritus, Denies erythema, Denies rash and Denies wounds Neurologic Neurologic: Denies behavioral changes, Denies confusion, Denies dizziness, Denies frequent falls, Denies loss of vision, Denies numbness, Denies tingling and Denies weakness Psychiatric Psychiatric: Denies anxiety, Denies behavioral changes, Denies confusion, Denies depression, Denies homicidal ideation and Denies suicidal ideation Endocrine Endocrine: Denies fatigue, Denies flushing and Denies palpitations Hematologic/Lymphatic Hematologic/Lymphatic: Denies easy bruising Allergic/Immunologic Allergic/Immunologic: Denies urticaria, Denies throat swelling and Denies wheezing Patient History Medical History Upper extremity neuropathy (Acute) Social History Smoking Status: Never smoker alcohol intake frequency: 0-2 drinks per day Substance Use Type: does not use Exam Initial Vital Signs Initial Vital Signs: Vital Signs Temperature 97 F L 12/24/18 08:55 Pulse Rate 90 12/24/18 08:55 Respiratory Rate 13 12/24/18 08:55 Blood Pressure 129/87 12/24/18 08:55 Pulse Oximetry 99 12/24/18 08:55 Const General: cooperative and well developed Nutritional Appearance: well nourished Orientation: alert, awake, oriented x3 and not confused [facility] Head: normocephalic and atraumatic Ears: external ears normal Nose: external nose normal and No nasal discharge Face and sinus: face symmetric and No dry mucous membranes Mouth: oral mucosae normal and moist mucous membranes Teeth and gingiva: dentition normal Eyes General: appearance normal, both eyes and all related structures Eyelids: eyelids normal Conjunctivae: conjunctivae normal Sclera: sclerae normal Pupils: PERRL EOM: EOM intact bilaterally Neck Neck: normal visual inspection, trachea midline, No lymphadenopathy, No midline deformity and No JVD Lymphatic: No lymphedema Resp Effort & Inspection: normal respiratory effort, able to speak in complete sentences, no respiratory distress and no use of accessory muscles Skin General: no rashes or lesions noted, No jaundice and No petechiae Other: Tiny puncture wound noted on patient's right index finger. Neuro General: alert and awake Speech: speech normal Extrem General: full ROM Course Course Course Narrative: Patient's exposure overall was low risk, but I did order needle stick lab protocol on the patient. Patient's nurse supervisor refractory products did come down and stated that labs would be ordered on the source patient, who is still admitted, as well. patient's labs reflected her prior hepatitis B immunization. We have discussed the need for follow-up and recheck of hepatitis C titers. At this time, no prophylactic intervention is indicated. Vital Signs Vital signs: Vital Signs - 8 hr 12/24/18 08:55 Temperature 97 F L Pulse Rate 90 Respiratory Rate 13 Blood Pressure 129/87 Pulse Oximetry 99 MDM - Skin/Abscess/Foreign Bdy Medical Records Attestation: I reviewed the patient's medical records. Lab Data Attestation: I reviewed the patient's lab results. Labs: Lab Results 12/24/18 12/24/18 12/24/18 Range/Units 07:42 07:42 07:42 ALT 14 (<35) IU/L Hep Bs Antigen Negative (NEGATIVE) s/c Hep Bs Antibody Reactive A (Nonreactive) Hepatitis C Antibody Negative (NEGATIVE) s/c HIV 1&2 Ab/P24 Ag 4thGn Negative (NEGATIVE) Discharge Plan Departure Patient Disposition: Home Clinical Impression: Needle stick injury of finger Discharge Date/Time: 12/24/18 11:06 Instructions: How to Handle Body Fluid Exposure -- Healthcare Worker Activity Restrictions/Additional Instructions: We will need the name of the source patient so that we can follow up on the source patient's labs and appropriately disability counselor you regarding this exposure. There is no immediate treatment that is indicated for potential hepatitis C. If your blood becomes positive for hepatitis C, then you may be a candidate for interferon and ribavirin. Please refer to the chart that has been given to you regarding hepatitis-C post exposure management. Prescriptions: No Action multivitamin Tablet 1 tab PO DAILY RF: 0 sumatriptan 5 mg/actuation [place],Non-Aerosol 5 mg INTRANASAL Q2-4H PRN (Reason: Migraine Headache) RF: 0 oxycodone-acetaminophen [Percocet] 5-325 mg Tablet 1 tab PO Q4-6H PRN (Reason: Pain (Scale Score 1-3)) RF: 0 nortriptyline 10 mg Capsule 40 mg PO DAILY RF: 0 zolpidem [Ambien] 10 mg Tablet 10 mg PO BEDTIME PRN (Reason: Insomnia) RF: 0 topiramate [Topamax] 100 mg Tablet 100 mg PO BID RF: 0 cholecalciferol (vitamin D3) [Vitamin D3] 1,000 unit Capsule 3,000 unit PO DAILY RF: 0 magnesium 200 mg Tablet 400 mg PO DAILY RF: 0 metoprolol tartrate 25 mg Tablet 10 mg PO DAILY RF: 0 hydroxychloroquine [Plaquenil] 200 mg Tablet 400 mg PO DAILY RF: 0 sertraline 50 mg Tablet 50 mg PO DAILY RF: 0 norgestimate-ethinyl estradiol [Ortho Tri-Cyclen (28)] 0.18/0.215/0.25 mg-35 mcg (28) Tablet 1 tab PO DAILY RF: 0 Referrals: Gertrude Pina DO [Primary Care Provider] -
[2018-12-24 11:27] LABS: Hepatitis B Surface Antigen NEGATIVE s/c (NEGATIVE)
[2018-12-24 11:52] LABS: HIV 1 & 2 Ab/Ag 4th Gen Combo NEGATIVE (NEGATIVE); Hep C Virus Ab w/Reflex Quant NEGATIVE s/c (NEGATIVE)
[2018-12-26 15:19] LABS: Hepatitis B Surf Ab Qualitativ Reactive (Nonreactive)
== END 2018-12-24 11:06 | disposition home or self-care (01) ==
PROVIDERS: Emergency Provider Emergency Medicine; PCP Family Medicine
DX: S69.81XA Other specified injuries of right wrist, hand and finger(s), initial encounter (principal); Z20.5 Contact with and (suspected) exposure to viral hepatitis
CPT/HCPCS: 36415; 84460; 86706; 86803; 87340; 87389; 99282; 99283

== ENCOUNTER 2019-02-11 07:18 | Outpatient (CLI) | payer OTHER, SELFPAY ==
[2019-02-11] VITALS (13 sets, daily range): BP systolic 117–169; BP diastolic 83–100; PULSE 82–91; RESP 14–18; TEMP 36–36.5; O2SAT 96–100
--- NOTE | 2019-02-11 | DI.RAD.S_ITS ---
PROCEDURE: FL MYELOGRAM SPINE LUMBOSACRAL INDICATIONS: C.T Mylogram TECHNIQUE: The indications, alternatives, benefits, risks and complications of the procedure were explained to the patient. Written informed consent was obtained and placed in the chart. The patient was placed in a prone position on the fluoroscopy table, and the skin was prepped and draped in a sterile fashion. 1% lidocaine was utilized for local anesthesia. Patient required conscious sedation for this procedure, with 2 mg Versed and 100 mcg of Fentanyl administered. Multiple attempts at percutaneous access under fluoroscopic guidance were made at the L4-L5 and L5-S1 level utilizing a spinal needle to enter the intrathecal space, with return of clear cerebrospinal fluid achieved at the L4-L5 level. 10 mL of Isovue M-200 were administered intrathecally under fluoroscopic visualization. The needle was then withdrawn, and a bandage applied to the puncture site. Fluoroscopic spot films were then acquired in various positions. Patient was transferred to CT for subsequent CT myelogram. FINDINGS: Fluoroscopic views demonstrate flow of contrast limited to the L4-S1 levels, without significant contrast flow above the L4 level despite multiple attempts at positioning and maneuvering. A stimulator device projects over the right hemiabdomen. Access level: L5-S1 Medications: 1% lidocaine for local anaesthesia. Patient required conscious sedation for this procedure, with 2 mg Versed and 100 mcg of Fentanyl administered IV. Complications: Patient reported a headache and back pain rated at 6/10 for severity prior to beginning the procedure. Patient stated that her back pain pauly to an 8/10 during the procedure, which then subsequently improved and returned to her baseline 6/10 level after the procedure. She stated her headache actually resolved after the procedure. She experienced mild right leg pain which subsequently improved after observation for 1.5 hours post procedure. Patient denied any issues with balance or ambulation at the time of discharge. IMPRESSION: Successful fluoroscopically guided administration of iodinated contrast into the lumbar spine central canal for CT myelogram. Dictated by: Shabbir Oseguera M.D. on 02/11/2019 at 12:09 Approved by: Shabbir Oseguera M.D. on 02/11/2019 at 12:30
[2019-02-11] MEDS: fentaNYL 100 MCG/2 ML INJ IV (09:09)
[2019-02-11] MEDS: MIDAZOLAM 2 MG/2 ML VIAL IV (09:09)
--- NOTE | 2019-02-11 10:30 | DI.CT.S_ITS ---
PROCEDURE: CT LUMBAR SPINE W CON INDICATIONS: PAIN TECHNIQUE: After the administration of intravenous Isovue contrast, 3 mm thick sections acquired through the levels of interest. Sagittal and coronal reformats were then constructed. For radiation dose reduction, the following was used: automated exposure control. COMPARISON: [facility], MR, L-SPINE WITHOUT CONTRAST, 05/11/2016, 18:26. [facility], RG, CT L SPINE WITHOUT CONTRAST, 04/14/2018, 13:01. [facility], RF, FL MYELOGRAM SPINE LUMBOSACRAL, 02/11/2019, 8:36. FINDINGS: Image quality: Excellent Bones: No fracture identified. Anatomic alignment. Congenital shortening of the lumbar spine pedicles and associated canal stenosis Multilevel degenerative endplate sclerosis and spurring. Diffuse facet arthropathy. Minimal diffuse disc height loss. Unilateral right-sided L5 pars defect. Soft tissues: Unremarkable L1-L2, broad-based posterior disc bulge and severe canal narrowing. Partial effacement of both lateral recesses with asymmetric appearance, left greater than right. No definite foraminal stenosis At L2-L3: Moderate to severe central canal narrowing. Partial effacement of both lateral recesses with bilaterally symmetric appearance. No definite bony foraminal stenosis At L3-L4: Mild central canal narrowing. Partial effacement of both lateral recesses with bilaterally symmetric appearance. No definite foraminal stenosis At L4-L5: Mild central canal narrowing. Partial effacement of both lateral recesses with bilaterally symmetric appearance. No definite bony foraminal stenosis At L5-S1: Mild central canal narrowing. Partial effacement of both lateral recesses with bilaterally symmetric appearance. No foraminal stenosis. 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 on 02/11/2019 at 17:31 Approved by: Trevon Sanchez M.D. on 02/11/2019 at 17:45
--- NOTE | 2019-02-11 10:32 | SUR.PHASEII ---
Patient arrived, teary. VS stable. Denied headache or nausea. Reported 7-8/10 back pain. Call light within reach. Water provided.
[2019-02-11] MEDS: CODEINE/ACETAMINOPHEN 30/300 TABLET 1 TAB PO (10:38)
--- NOTE | 2019-02-11 10:50 | SUR.PHASEII ---
MD evaluated patient. Patient able to sit up per MD. Patient tolerated HOB elevation without difficulty. Lunch tray provided.
--- NOTE | 2019-02-11 12:50 | SUR.PHASEII ---
[id number] Dr. Oseguera evaluated patient. VS stable. Ok for patient to discharge per
== END 2019-02-11 11:38 | disposition home or self-care (01) ==
PROVIDERS: PCP Family Medicine
DX: M54.5 Low back pain (principal)
CPT/HCPCS: 72132; 72265; J2250; J3010

== ENCOUNTER → 2020-07-06 16:02 | Outpatient (CLI) | payer OTHER, SELFPAY ==
--- NOTE | 2020-07-06 16:06 | DI.US.S_ITS ---
PROCEDURE: US RENAL COMPLETE INDICATIONS: RIGHT FLANK PAIN TECHNIQUE: Real-time scanning was performed of the kidneys and bladder, with image documentation. COMPARISON: [facility], CT, CT LUMBAR SPINE W CON, 02/11/2019, 9:45. Outside Film, US, US ABDOMEN LIMITED, 01/24/2020, 8:16. FINDINGS: Kidneys: Kidneys are normal in size. Right kidney measures 11.6 cm long; left kidney measures 11.8 cm long. Right renal cortical thickness is 2.0 cm; left renal cortical thickness is 1.9 cm. Renal cortical echotexture is normal. Mild right renal pelviectasis versus extrarenal pelvis. No nephrolithiasis. No suspicious solid mass lesions. Bladder: Pre-void bladder volume is 537 mL. Post-void residual is 0 mL. Pre-void images demonstrate no intraluminal masses or stones. On pre-void images, both ureteral jets are noted with color Doppler interrogation. (Of note, ureteral jets may not be detectable in up to 25% of cases due to insufficient differences in specific gravity between ureteral and bladder urine). Miscellaneous: No free pelvic fluid. IMPRESSION: 1. Mild right renal pelviectasis versus extra renal pelvis. If clinically indicated, CT KUB may be helpful. 2. Both ureteral jets were visualized joint exam. 3. Distended prevoid urinary bladder empties normally. Dictated by: Stuart Good M.D. on 07/07/2020 at 9:04 Approved by: Stuart Good M.D. on 07/07/2020 at 9:10
== END ==
PROVIDERS: PCP Family Medicine; Referring Provider Family Medicine; Visit Provider Family Medicine
DX: R10.9 Unspecified abdominal pain (principal)
CPT/HCPCS: 76770

== ENCOUNTER 2020-07-07 12:42 | Emergency (ER) | payer OTHER, SELFPAY ==
[2020-07-07] VITALS (7 sets, daily range): BP systolic 113–138; BP diastolic 65–91; PULSE 88–94; RESP 14–18; TEMP 36.4; O2SAT 97–100; BMI 34.3
[2020-07-07 13:50] LABS: Add Manual Diff / Slide Review NO; Basophils Absolute Auto 0 /uL (0-100); Basophils Percent Auto 0.2 % (0-2); Eosinophils Absolute Auto 100 /uL (0-450); Eosinophils Percent Auto 1.8 % (2-4); Hematocrit 41.3 % (36-46); Hemoglobin 13.6 g/dL (12.0-16.0); Lymphocytes Absolute Auto 2300 /uL (1100-4500); Lymphocytes Percent Auto 30.2 % (25-40); Mean Corpuscular HGB Conc 32.8 % (30-36); Mean Corpuscular Hemoglobin 30.3 PG (26-34); Mean Corpuscular Volume 92.2 fL (80-100); Monocytes Absolute Auto 500 /uL (0-900); Monocytes Percent Auto 6.4 % (3-14); Neutrophils Absolute Auto 4600 /uL (1500-7000); Neutrophils Percent Auto 61.4 % (50-75); Platelet Count 316 X10^3/uL (150-400); Red Blood Cell Count 4.48 X10^6/uL (4.0-5.2); Red Cell Distribution Width 13.1 % (11.6-14.8); White Blood Cell Count 7.5 X10^3/uL (4.5-11.0)
[2020-07-07 13:57] LABS: Prothrombin Time 11.5 SECONDS (10.1-12.7)
[2020-07-07 14:00] LABS: PTT Partial Thromboplastin Tim 33 SECONDS (26.4-36.2)
[2020-07-07 14:02] LABS: Alanine Aminotransferase 23 IU/L (<35); Albumin 4.3 g/dL (3.5-5.0); Albumin Globulin Ratio 1.4 (1.0-2.8); Alkaline Phosphatase 51 U/L (38-126); Aspartate Aminotransferase 23 IU/L (14-36); BUN Creatinine Ratio 17.5 (6-22); Bilirubin Total 0.3 mg/dL (0.2-1.3); Blood Urea Nitrogen 14 mg/dL (7-17); Calcium 9.6 mg/dL (8.4-10.2); Carbon Dioxide 24 mmol/L (22-32); Chloride 106 mmol/L (98-107); Estimated Glomerular Filt Rate > 60.0 mL/min (>60); Glucose 90 mg/dL (70-100); HEMOLYSIS < 15 (0-50); Lipase 90 U/L (23-300); Potassium 3.9 mmol/L (3.4-5.1); Sodium 138 mmol/L (137-145); Total Protein 7.3 g/dL (6.3-8.2)
--- NOTE | 2020-07-07 16:51 | PC.NURSE ---
Reports UTI two weeks ago, prescribed Keflex. Still having right flank pain and intermittent nausea.
--- NOTE | 2020-07-07 16:54 | ED_ITS ---
HPI - Abdominal Pain General Chief Complaint: Urogenital-Female Stated Complaint: right side flank pain with nausea for couple wks Time Seen by Provider: 07/07/20 12:48 Source: patient Mode of arrival: Ambulatory Limitations: no limitations History of Present Illness HPI narrative: This is a 35-year-old female comes to the emergency department with complaint of right flank pain nausea. Patient states she developed right flank pain couple weeks ago. She saw Dr. Carroll who did labs and noted that she had a positive urine culture for strep B and she is currently on her 5th day of Keflex. She has been taking 500 mg twice daily. Patient states her flank pain has been increasing over time. She also has had increasing nausea over the last 24-48 hours. It has had decreased appetite today. She is not in active vomiting. She denies any fevers or chills that she is aware but has felt generally unwell. She denies any anterior abdominal pain. She has a history of chronic back issues along with a spinal stimulator but states this does not feel like her typical back pain. She does not any radiation pain down her legs, no numbness or tingling or weakness. She denies any dysuria, frequency, hesitancy or hematuria. She denies any diarrhea constipation. She denies any black or bloody stools. Patient takes medication for rheumatoid arthritis including methotrexate, Plaquenil, duloxetine for fibromyalgia, surgically, metoprolol for hypertension, Mepitel, repaired all for restless leg and Topamax for nerve pain. She has as needed Percocet and was taking Celebrex daily until they noted her GFR had dropped from 110-72. Patient did have a cholecystectomy May 21. She does have a spinal stimulator and the battery is located on the right flank region but she is not appreciate any warmth, erythema or tenderness over the stimulator itself or the battery. She has had history of bilateral arthroscopic knee surgery, x2 and L4-L5 laminectomy. She has a topical iodine allergy but states she does not have any problem with IV contrast. No tobacco, denies alcohol or illicit. Dr. Carroll is her PCP. Related Data Home Medications Medication Instructions Recorded Confirmed cholecalciferol (vitamin D3) 3,000 unit PO DAILY 05/10/18 02/11/19 [Vitamin D3] magnesium 400 mg PO DAILY 05/10/18 02/11/19 metoprolol tartrate 10 mg PO DAILY 05/10/18 02/11/19 multivitamin 1 tab PO DAILY 05/10/18 02/11/19 nortriptyline 40 mg PO DAILY 05/10/18 02/11/19 oxycodone-acetaminophen [Percocet] 1 tab PO Q4-6H PRN 05/10/18 02/11/19 sumatriptan 5 mg INTRANASAL Q2-4H PRN 05/10/18 02/11/19 zolpidem [Ambien] 10 mg PO BEDTIME PRN 05/10/18 02/11/19 hydroxychloroquine [Plaquenil] 400 mg PO DAILY 09/30/18 02/11/19 norgestimate-ethinyl estradiol 1 tab PO DAILY 09/30/18 02/11/19 [Ortho Tri-Cyclen (28)] sertraline 50 mg PO DAILY 09/30/18 02/11/19 celecoxib [Celebrex] 200 mg PO DAILY 02/11/19 02/11/19 Allergies Allergy/AdvReac Type Severity Reaction Status Date / Time iodine [IODINE] Allergy Mild TOPICAL Verified 05/10/18 16:48 ONLY, RASH, ITCHING Penicillins Allergy Verified 05/10/18 16:48 morphine [MORPHINE] AdvReac Severe ITCHING Verified 05/10/18 16:48 Review of Systems Review of Systems ROS Unobtainable: All systems reviewed & are unremarkable except as noted in HPI and below Patient History Medical History (Updated 07/07/20 @ 18:04 by Ewa Santoyo DO) Upper extremity neuropathy Social History Smoking Status: Never smoker Smoking Status: Never smoker alcohol intake frequency: 0-2 drinks per day Substance Use Type: does not use Exam Narrative Exam Narrative: GENERAL: Alert and oriented x three, well-nourished female in mild distress. HEENT: Head normocephalic, atraumatic, EOMI, pupils reactive, face symmetric, moist mucous membranes NECK: Supple, full range of motion CARDIOVASCULAR: Regular rate and rhythm without murmurs, rubs or gallops. RESPIRATORY: Breath sounds equal bilaterally, no wheezes rales or rhonchi. ABDOMEN: Soft, nontender. Normoactive bowel sounds all 4 quadrants. No guarding or rebound, rigidity, no mass : No CVA tenderness bilaterally. BACK: No cervical, thoracic or lumbar vertebral point tenderness. Patient has normal range of motion. Patient does have a spinal stimulator battery the right flank which is nontender to palpation. There is no warmth or erythema over the site of itself or the spinal stimulator which is midline at the upper L- spine/lower thoracic region. EXTREMITIES: Normal range of motion, no clubbing or edema. Neurovascularly intact NEUROLOGICAL: Cranial nerves II through XII grossly intact. Moving all extremities SKIN: Warm, dry, no petechiae, no rashes or lesions. Initial Vital Signs Initial Vital Signs: Vital Signs Temperature 97.6 F 07/07/20 13:20 Pulse Rate 94 H 07/07/20 13:20 Respiratory Rate 18 07/07/20 13:20 Blood Pressure 138/91 H 07/07/20 13:20 Pulse Oximetry 100 07/07/20 13:20 Course Orders Ordered: Discontinued Medications Sodium Chloride (Normal Saline 0.9%) 1,000 mls @ 1,000 mls/hr IV BOLUS ONE Stop: 07/07/20 18:46 Last Infusion: 07/07/20 19:09 Dose: 0 mls/hr Documented by: Admin: 07/07/20 18:04 Dose: 1,000 mls/hr Documented by: DARLENE Ondansetron HCl (Ondansetron 4 Mg/2 Ml Inj) 4 mg IV NOW ONE Stop: 07/07/20 17:48 Last Admin: 07/07/20 18:05 Dose: 4 mg Documented by: DARLENE Vital Signs Vital signs: Vital Signs - 8 hr 07/07/20 13:20 07/07/20 16:45 07/07/20 16:46 Temperature 97.6 F Pulse Rate 94 H 88 88 Respiratory Rate 18 Blood Pressure 138/91 H 123/68 Pulse Oximetry 100 99 100 07/07/20 17:00 07/07/20 17:30 07/07/20 18:00 Temperature Pulse Rate 88 88 92 H Respiratory Rate Blood Pressure 125/65 117/71 113/71 Pulse Oximetry 100 97 100 MDM - Abdominal Pain Lab Data Attestation: I reviewed the patient's lab results. Result diagrams: 07/07/20 13:41 05/18/21 13:41 Labs: Lab Results 07/07/20 07/07/20 07/07/20 Range/Units 13:41 13:41 13:41 WBC 7.5 (4.5-11.0) X10^3/uL RBC 4.48 (4.0-5.2) X10^6/uL Hgb 13.6 (12.0-16.0) g/dL Hct 41.3 (36-46) % MCV 92.2 (80-100) fL MCH 30.3 (26-34) PG MCHC 32.8 (30-36) % RDW 13.1 (11.6-14.8) % Plt Count 316 (150-400) X10^3/uL Neut % (Auto) 61.4 (50-75) % Lymph % (Auto) 30.2 (25-40) % [place] % (Auto) 6.4 (3-14) % Eos % (Auto) 1.8 L (2-4) % Baso % (Auto) 0.2 (0-2) % Neut # (Auto) 4600 (8523-6822) /uL Lymph # (Auto) 2300 (3275-1503) /uL [place] # (Auto) 500 (0-900) /uL Eos # (Auto) 100 (0-450) /uL Baso # (Auto) 0 (0-100) /uL PT 11.5 (10.1-12.7) SECONDS INR 1.0 (0.9-1.3) APTT 33 (26.4-36.2) SECONDS Sodium 138 (137-145) mmol/L Potassium 3.9 (3.4-5.1) mmol/L Chloride 106 (98-107) mmol/L Carbon Dioxide 24 (22-32) mmol/L BUN 14 (7-17) mg/dL Creatinine 0.80 (0.52-1.04) mg/dL Estimated GFR > 60.0 (>60) mL/min BUN/Creatinine Ratio 17.5 (6-22) Glucose 90 (70-100) mg/dL Calcium 9.6 (8.4-10.2) mg/dL Total Bilirubin 0.3 (0.2-1.3) mg/dL AST 23 (14-36) IU/L ALT 23 (<35) IU/L Alkaline Phosphatase 51 (38-126) U/L Total Protein 7.3 (6.3-8.2) g/dL Albumin 4.3 (3.5-5.0) g/dL Globulin 3.0 (1.7-4.1) g/dL Albumin/Globulin Ratio 1.4 (1.0-2.8) Lipase 90 (23-300) U/L Point of care testing: Point of Care Testing Test Results Negative Urine Dip Bedside Urine Glucose Negative Bedside Urine Bilirubin - Negative Bedside Urine Ketone - Negative Urine Specific [place] 1.015 Bedside Urine Occult Blood - Negative Bedside Urine pH 6.5 Bedside Urine Protein - Negative Bedside Urine Urobilinogen - Negative Bedside Urine Nitrite - Negative Bedside Urine Leukocytes - Negative Esterase Imaging Data Renal ultrasound 07/06/20: Radiologist's Impression: [address] [id number] ReportSigned Patient: Amanda Bernstein MMR#: [id number]: 1985Acct:[id number]/Sex: 35 / FDate of Service: 07/06/20Loc: USAccession Number: [id number] Procedure: US renal complete Ordering Provider: Graham Carroll MD PROCEDURE: US RENAL COMPLETE INDICATIONS: RIGHT FLANK PAIN TECHNIQUE: Real-time scanning was performed of the kidneys and bladder, with image documentation. COMPARISON: [facility], CT, CT LUMBAR SPINE W CON, 02/11/2019, 9:45. Outside Film, US, US ABDOMEN LIMITED, 01/24/2020, 8:16. FINDINGS: Kidneys: Kidneys are normal in size. Right kidney measures 11.6 cm long; left kidney measures 11.8 cm long. Right renal cortical thickness is 2.0 cm; left renal cortical thickness is 1.9 cm. Renal cortical echotexture is normal. Mild right renal pelviectasis versus extrarenal pelvis. No nephrolithiasis. No suspicious solid mass lesions. Bladder: Pre-void bladder volume is 537 mL. Post-void residual is 0 mL. Pre- void images demonstrate no intraluminal masses or stones. On pre-void images, both ureteral jets are noted with color Doppler interrogation. (Of note, ureteral jets may not be detectable in up to 25% of cases due to insufficient differences in specific gravity between ureteral and bladder urine). Miscellaneous: No free pelvic fluid. IMPRESSION: 1. Mild right renal pelviectasis versus extra renal pelvis. If clinically indicated, CT KUB may be helpful. 2. Both ureteral jets were visualized joint exam. 3. Distended prevoid urinary bladder empties normally. Dictated by: Stuart Good M.D. on 07/07/2020 at 9:04 Approved by: Stuart Good M.D. on 07/07/2020 at 9:10 CT scan - abdomen/pelvis: Radiologist's Impression: [address] [id number] Scan ReportSigned Patient: Amanda Bernstein MMR#: [id number]: 1985Acct:[id number]/Sex: 35 / FDate of Service: 07/07/20Loc: EDAccession Number: [id number] Procedure: CT abdomen pelvis w con Ordering Provider: Ewa Santoyo D.O. PROCEDURE: CT ABDOMEN PELVIS W CON INDICATIONS: right flank pain being treated for group b strep uti TECHNIQUE: After the administration of intravenous contrast, 5 mm thick sections acquired from the diaphragm to the symphysis. 5 mm coronal and sagittal reformats were acquired. For radiation dose reduction, the following was used: automated exposure control, adjustment of mA and/or kV according to patient size. COMPARISON: None. FINDINGS: Image quality: Excellent. ABDOMEN: Lung bases: Lung bases are clear. Heart size is normal. Solid organs: Liver is normal in size and enhancement. Gallbladder is not visualized and is presumed absent. Biliary system is non dilated. Pancreas enhances normally. Spleen is normal in size and enhancement. No adrenal nodules. Kidneys demonstrate normal size and enhancement, without hydronephrosis. Peritoneum and bowel: Bowel loops demonstrate normal wall thickness and caliber. No free fluid or air. Nodes and vessels: No retroperitoneal or mesenteric adenopathy by size criteria. Aorta and inferior vena cava are normal in size. Miscellaneous: No ventral hernias. Dorsal column stimulator device. PELVIS: Genitourinary: Bladder wall thickness is normal. Miscellaneous: No inguinal hernias or adenopathy. Bones: No suspicious bony lesions. No vertebral body compression fractures. IMPRESSION: 1. No evidence of renal stone, ureteral stone, hydronephrosis, or delayed nephrogram. No CT evidence of pyelonephritis. 2. No evidence of acute abdominal process. Dictated by: August Reyes M.D. on 07/07/2020 at 18:46 Approved by: August Reyes M.D. on 07/07/2020 at 18:48 ECG Data Attestation: I personally reviewed and interpreted this ECG as follows: Prior ECG tracings: available for review Interpretation: Sinus rhythm rate 83, NC 150 QRS 82 and QTC 430. No acute ST changes noted P urinated prior from 05/11/2018 for care [place] in. MDM Narrative Medical decision making narrative: This is a 35-year-old female with negative renal ultrasound yesterday, patient had urine culture positive for group B strep in the last week and his on her 5th day of cephalexin 500 mg b.i.d.. CBC, CMP and coags show no acute changes. Patient does have a history of laminectomy but does not have any vertebral tenderness. Her the battery for her stimulator is on the right flank. Eyes she does not have any reproducible pain but this is where the majority of her pain is and she does not have any anterior abdominal pain on physical examination. Plan for CT abdomen to rule out any other intra- abdominal process. Patient urine here is negative but she has been on 5 days of antibiotics. Urine is negative. Discussed with patient she states there were sensitivities on the culture. She is unsure where they were numb unable to obtain them at this time a night from her primary care. Patient urine was sent for culture again. We reviewed her imaging which showed no acute mckenzie nges. Patient defers pelvic exam which is a less likely cause for solitary flank pain but is a possible cause. Discussed with patient that she should have this done she continues to have symptoms. She is going to contact her primary care in the morning to evaluate for her sensitivities on her urine culture and urine culture was ordered here although her UA today was negative. Discharge Plan Departure Patient Disposition: Home Clinical Impression: Right flank pain Instructions: DI for Flank Pain Activity Restrictions/Additional Instructions: Follow up with your physician to discuss the antibiotic sensitivities on your culture. Your urine today did not show any clear signs of infection. A urine culture has been ordered for today typically takes 40-72 hours to result. You may resume your Celebrex if you feel comfortable doing so based on your GFR here in the department today. You may also continue your Percocet as needed. We did not perform a pelvic exam today as discussed, this is a potential source for your pain in if continuing I would recommend pursuing evaluation with pelvic examination. Please return for fevers greater 100.4 F, rapidly worsening symptoms, lightheadedness or passing out, persistent vomiting, difficulty with urination, black or bloody stools or other new or concerning changes. Prescriptions: No Action multivitamin Tablet 1 tab PO DAILY RF: 0 sumatriptan 5 mg/actuation [place],Non-Aerosol 5 mg INTRANASAL Q2-4H PRN (Reason: Migraine Headache) RF: 0 oxycodone-acetaminophen [Percocet] 5-325 mg Tablet 1 tab PO Q4-6H PRN (Reason: Pain (Scale Score 1-3)) RF: 0 nortriptyline 10 mg Capsule 40 mg PO DAILY RF: 0 zolpidem [Ambien] 10 mg Tablet 10 mg PO BEDTIME PRN (Reason: Insomnia) RF: 0 cholecalciferol (vitamin D3) [Vitamin D3] 1,000 unit Capsule 3,000 unit PO DAILY RF: 0 magnesium 200 mg Tablet 400 mg PO DAILY RF: 0 metoprolol tartrate 25 mg Tablet 10 mg PO DAILY RF: 0 hydroxychloroquine [Plaquenil] 200 mg Tablet 400 mg PO DAILY RF: 0 sertraline 50 mg Tablet 50 mg PO DAILY RF: 0 norgestimate-ethinyl estradiol [Ortho Tri-Cyclen (28)] 0.18/0.215/0.25 mg-35 mcg (28) Tablet 1 tab PO DAILY RF: 0 celecoxib [Celebrex] 200 mg Capsule 200 mg PO DAILY RF: 0 Referrals: Graham Carroll MD [Non-Staff] - Zee Brito ARNP [Primary Care Provider] -
--- NOTE | 2020-07-07 17:47 | DI.CT.S_ITS ---
PROCEDURE: CT ABDOMEN PELVIS W CON INDICATIONS: right flank pain being treated for group b strep uti TECHNIQUE: After the administration of intravenous contrast, 5 mm thick sections acquired from the diaphragm to the symphysis. 5 mm coronal and sagittal reformats were acquired. For radiation dose reduction, the following was used: automated exposure control, adjustment of mA and/or kV according to patient size. COMPARISON: None. FINDINGS: Image quality: Excellent. ABDOMEN: Lung bases: Lung bases are clear. Heart size is normal. Solid organs: Liver is normal in size and enhancement. Gallbladder is not visualized and is presumed absent. Biliary system is non dilated. Pancreas enhances normally. Spleen is normal in size and enhancement. No adrenal nodules. Kidneys demonstrate normal size and enhancement, without hydronephrosis. Peritoneum and bowel: Bowel loops demonstrate normal wall thickness and caliber. No free fluid or air. Nodes and vessels: No retroperitoneal or mesenteric adenopathy by size criteria. Aorta and inferior vena cava are normal in size. Miscellaneous: No ventral hernias. Dorsal column stimulator device. PELVIS: Genitourinary: Bladder wall thickness is normal. Miscellaneous: No inguinal hernias or adenopathy. Bones: No suspicious bony lesions. No vertebral body compression fractures. IMPRESSION: 1. No evidence of renal stone, ureteral stone, hydronephrosis, or delayed nephrogram. No CT evidence of pyelonephritis. 2. No evidence of acute abdominal process. Dictated by: August Reyes M.D. on 07/07/2020 at 18:46 Approved by: August Reyes M.D. on 07/07/2020 at 18:48
[2020-07-07] MEDS: SODIUM CHLORIDE 0.9% 1,000 ML 1000 ML IV (18:04)
[2020-07-07] MEDS: ONDANSETRON 4 MG/2 ML INJ IV (18:05)
== END 2020-07-07 19:14 | disposition home or self-care (01) ==
PROVIDERS: Emergency Medicine; Emergency Provider Emergency Medicine; PCP Nurse Practitioner Family
DX: R10.9 Unspecified abdominal pain (principal); R11.0 Nausea
CPT/HCPCS: 36415; 74177; 80053; 81003; 81025; 83690; 85025; 85610; 85730; 87086; 93005; 93010; 96361; 96374; 99284; J2405